=== PATIENT | male | born 1965 | race Caucasian/White ===

== ENCOUNTER 2023-09-21 20:51 | Emergency (ER) | payer MEDICAID ==
[~2023-09-21] VITALS: Ht 172.7 cm; Wt 98.6 kg
[2023-09-21] MEDS ORDERED: Albuterol 90 MCG/PUFF 8 GM MDI IH ONE (21:15)
[2023-09-21] MEDS ORDERED: predniSONE 50 MG TAB PO ONE (21:15)
[2023-09-21] MEDS ORDERED: PROAIR HFA0.09 MG/AC IH (21:50)
[2023-09-21] MEDS ORDERED: DOXYCYCLINE 10100 MG PO (21:50)
[2023-09-21] MEDS ORDERED: PREDNISONE50 MG PO (21:50)
[2023-09-21 22:00] VITALS: BP 138/98; PULSE 96; TEMP 98.4
[2023-09-21] MEDS ORDERED: Doxycycline Monohydrate 100 MG CAP PO ONE (22:00)
== END 2023-09-21 22:20 | disposition home or self-care (01) ==
LOC: COL.ER 20:51
DX: J18.9 Pneumonia, unspecified organism (principal); R00.0 Tachycardia, unspecified; Z88.0 Allergy status to penicillin
CPT/HCPCS: J7512